=== PATIENT | male | born 1970 | race Caucasian/White ===

== ENCOUNTER → 2021-10-04 | Outpatient (CLI) | payer OTHER ==
--- NOTE | 2021-10-04 13:37 | CT ---
EXAMINATION TYPE: CT abdomen pelvis w con DATE OF EXAM: 10/04/2021 COMPARISON: None available HISTORY: Diverticulitis, hernia pain-umbilical area CT DLP: 3994 mGycm Automated exposure control for dose reduction was used. TECHNIQUE: Helical acquisition of images was performed from the lung bases through the pelvis. CONTRAST: Performed with Oral Contrast and with IV Contrast, patient injected with 100 mL of Isovue 300. FINDINGS: Mild wall thickening of the inferior aspect of the esophagus. Unremarkable nondistended stomach, duod enum and small bowel. Scattered uncomplicated colonic diverticulosis. No gross colonic mass. Normal a ppendix. Umbilical hernia containing mesenteric fat. The hernial sac measures 4.2 x 4.1 x 6.3 cm. The hernial neck measures 14 x 26 mm. Fat stranding is seen within the hernia and extending into the abdominal ca vity, underlying inflammation or fat infarct cannot be excluded. No bowel is seen within the hernia. No other anterior abdominal wall hernia identified. Ill-defined slightly exophytic hypodensity is seen at the anterior aspect of the left hepatic lobe me asuring 19 x 20 mm, incompletely characterized by this CT scan. No other definite hepatic focal lesio n identified. Unremarkable gallbladder, spleen, adrenals and kidneys. Fatty infiltration mainly of th e pancreatic head. No definite pancreatic lesion. Minimal aortic atherosclerotic calcifications. Unremarkable urinary bladder, prostate and seminal ves icles. No suspicious lymphadenopathy or sizable ascites. Unremarkable lung bases. No aggressive bone lesion. IMPRESSION: 1. Colonic diverticulosis without evidence of acute diverticulitis. 2. Fat-containing umbilical hernia as described above, for surgery consultation. 3. Indeterminate left hepatic lobe hypodensity, which could represent a hepatic hemangioma however ot her hepatic lesion cannot be excluded. Recommend further targeted ultrasound assessment. Other incide ntal findings as described above.
== END | disposition home or self-care (01) ==
LOC: RADCTMAIN 10:30
PROVIDERS: ATTEND Surgery Plastic and Reconstructive Surgery
DX: K42.9 Umbilical hernia without obstruction or gangrene (principal); K57.30 Diverticulosis of large intestine without perforation or abscess without bleeding; I11.9 Hypertensive heart disease without heart failure
CPT/HCPCS: 74177; 93005; Q9967

== ENCOUNTER → 2021-10-29 | Outpatient (CLI) | payer OTHER ==
[2021-10-29 23:41] LABS: HCT 43.3 % (39.6-50.0); HGB 14.3 g/dL (13.0-17.0); MCH 29.9 pg (27.0-32.0); MCV 90.6 fL (80.0-97.0); Mean Platelet Volume 12.1 fL (9.5-12.2); NRBC Per 100 WBC 0 /100 WBCS (0.0-0.0); Platelet Count 238 X 10*3/uL (140-440); RBC 4.78 X 10*6/uL (4.40-5.60); RDW 13.3 % (11.5-14.5); WBC 8.06 X 10*3/uL (4.50-10.00)
== END | disposition home or self-care (01) ==
LOC: LABPAT 16:00
PROVIDERS: ATTEND Anesthesiology
DX: Z01.812 Encounter for preprocedural laboratory examination (principal); K46.9 Unspecified abdominal hernia without obstruction or gangrene
CPT/HCPCS: 85027

== ENCOUNTER 2021-11-01 09:42 | Day surgery (SDC) | payer OTHER ==
[2021-10-28 14:49] VITALS: BMI 42.2
--- NOTE | 2021-11-01 09:26 | P.GSHP ---
History of Present Illness H&P Date: 11/01/21 CHIEF COMPLAINT: Ventral hernia HISTORY OF PRESENT ILLNESS: The patient is a 66-year-old male presents with a history of swelling and pain along the abdomen from a hernia. Symptoms have been present for the 6 months. Now he presents for surgical intervention. PAST MEDICAL HISTORY: Please see list. PAST SURGICAL HISTORY: Please see list. MEDICATIONS: Please see list. ALLERGIES: Please see list. SOCIAL HISTORY: No illicit drug use FAMILY HISTORY: No reports of Crohn disease or ulcerative colitis. REVIEW OF ORGAN SYSTEMS: CONSTITUTIONAL: No reports of fevers or chills. No reports of weight loss despite prior attempts. GI: Denies any blood in stools or constipation. PHYSICAL EXAM: VITAL SIGNS: Stable GENERAL: Well-developed pleasant male in no acute distress. HEENT: No scleral icterus. Extraocular movements grossly intact. Moist buccal mucosa. NECK: Supple without lymphadenopathy. CHEST: Unlabored respirations. Equal bilateral excursions. CARDIOVASCULAR: Regular rate and rhythm. Distal 2+ pulses. ABDOMEN: Soft, nondistended. Palpable defect of the abdomen. No peritoneal signs. MUSCULOSKELETAL: No clubbing, cyanosis, or edema. ASSESSMENT: 1. Ventral hernia PLAN: 1. Recommend proceeding with robotic ventral and right inguinal hernia repair with mesh. 2. Benefits and risks of surgical intervention was discussed including possibility of open technique. 3. DVT prophylaxis. 4. Antibiotic prophylaxis. 5. Non narcotic pain management including abdominal wall block including multimodal pain management described 6. Smoking cessation advised for any recent tobacco use 7. Weight loss management and recovery with high protein low carbohydrate diet advised for maximal recovery. Past Medical History Additional Past Medical History / Comment(s): hernia History of Any Multi-Drug Resistant Organisms: None Reported Additional Past Surgical History / Comment(s): COLONOSCOPY Past Anesthesia/Blood Transfusion Reactions: No Reported Reaction Smoking Status: Never smoker - Past Family History Father Family Medical History: Cancer Additional Family Medical History / Comment(s): COLON AND LUNG Medications and Allergies Home Medications Medication Instructions Recorded Confirmed Type No Known Home Medications 10/28/21 10/28/21 History Allergies Allergy/AdvReac Type Severity Reaction Status Date / Time No Known Allergies Allergy Verified 10/28/21 14:45
[~2021-11-01 09:42] MED LIST: ACETAMINOPHEN TAB 500 MG TAB PO PRN; DEXAMETHASONE SOD PHOSPHATE 4 MG/ML 1 ML VIAL IV ONE; GABAPENTIN 300 MG CAP PO PRN; HEPARIN SODIUM,PORCINE/PF 5,000 UNIT/0.5 ML SYRINGE SQ PRN; HYDROmorphone 0.5 MG/0.5 ML SYRINGE IVP PRN; MELOXICAM 7.5 MG TAB PO PRN; MIDAZOLAM 2 MG/2 ML VIAL IV PRN; ONDANSETRON 4 MG/2 ML VIAL IVP ONE; SCOPOLAMINE 1.5MG/72HR PATCH TRANSDERM ONE; TAMSULOSIN 0.4 MG CAP.ER.24H PO PRN; ceFAZolin 3 GM in SODIUM CHLORIDE 0.9% 100 ML IVPB PRN
[2021-11-01] MEDS: LACTATED RINGERS 1,000 ML IV SCH ×2 (09:50→16:20)
[2021-11-01] MEDS ORDERED: MIDAZOLAM 2 MG/2 ML VIAL IVP ONE (10:37)
[2021-11-01] MEDS ORDERED: fentaNYL (PF) 50 MCG/ML 2 ML AMP IVP ONE (10:37)
[2021-11-01 12:04] LABS: ALT 22 U/L (4-49); AST 27 U/L (17-59); African American GFR (CKD) >90 (>60 ml/min/1.73 sqM); Alkaline Phosphatase 78 U/L (38-126); Anion Gap 7 mmol/L; Blood Urea Nitrogen 13 mg/dL (9-20); Calcium 8.9 mg/dL (8.4-10.2); Carbon Dioxide 24 mmol/L (22-30); Chloride 106 mmol/L (98-107); Glucose 94 mg/dL (74-99); Non-African American GFR(CKD) 83 (>60 ml/min/1.73 sqM); Potassium 4.4 mmol/L (3.5-5.1); Sodium 137 mmol/L (137-145); Total Protein 7.2 g/dL (6.3-8.2)
[2021-11-01] MEDS ORDERED: LIDOCAINE 1% INJ 10MG/ML (20 ML MDV) ONE (12:25)
[2021-11-01] MEDS ORDERED: fentaNYL (PF) 50 MCG/ML 2 ML AMP ONE (12:25)
[2021-11-01] MEDS ORDERED: NEOSTIGMINE 1 MG/ML 10 ML VIAL ONE (12:25)
[2021-11-01] MEDS ORDERED: GLYCOPYRROLATE 0.2 MG/ML 2 ML VIAL ONE (12:25)
[2021-11-01] MEDS ORDERED: ROPIVACAINE 5 MG/ML 30 ML VIAL ONE (12:25)
[2021-11-01] MEDS ORDERED: ROCURONIUM 10 MG/ML (5 ML VIAL) IV ONE (12:25)
[2021-11-01] MEDS ORDERED: SODIUM CHLORIDE 0.9% (PF) 10 ML VIAL ONE (12:25)
[2021-11-01] MEDS ORDERED: PROPOFOL 10 MG/ML 20 ML VIAL IV ONE (12:25)
[2021-11-01] MEDS ORDERED: HYDROmorphone (PF) 1 MG/ML ONE (12:25)
[2021-11-01] MEDS ORDERED: SUCCINYLCHOLINE CHLORIDE 100 MG/5 ML SYR IV ONE (12:25)
[2021-11-01] MEDS ORDERED: BUPIVACAIN-EPI 0.25%-1:200,000 30 ML VIAL SQ ONE (12:31)
--- NOTE | 2021-11-01 12:45 | P.ANPRN ---
Procedure Note - Anesthesia - Nerve Block Performed Bilateral Rectus Abdominis Single Time Out Performed: Yes (1036) Date of Procedure: 11/01/21 Procedure Start Time: 10:37 Procedure Stop Time: 10:44 Location of Patient: PreOp Indication: Acute Post-Operative Pain, Requested by Surgeon Specifically requested for management of pain by DrJan: Marva Rivera Sedation Type: Sedate with meaningful contact maintained Preparation: Sterile Prep Position: Supine Catheter: None Needle Types: Pajunk Needle Gauge: 21 Ultrasound used to visualize needle placement: Yes Ultrasound used to observe medication spread: Yes Injectate: 0.5% Ropivacaine (see comment for volume) (20cc + 10cc nacl pf each side) Blood Aspirated: No Pain Paresthesia on Injection Noted: No Resistance on Injection: Normal Image Stored and Saved: Yes Events: Uneventful and Well Tolerated
[2021-11-01 14:08] VITALS: TEMP 97.2
[2021-11-01] MEDS ORDERED: oxyCODONE-APAP 7.5-325MG 1 EACH TAB PO PRN (14:13)
[2021-11-01] MEDS ORDERED: GABAPENTIN 300 MG CAP PO PRN (14:13)
[2021-11-01] MEDS ORDERED: KETOROLAC 15 MG/ML 1 ML VIAL IVP PRN (14:13)
[2021-11-01 14:17] VITALS: RESP 16
--- NOTE | 2021-11-01 14:19 | P.OP ---
Date of Procedure: 11/01/21 Description of Procedure: SURGEON: MARVA RIVERA MD PREOPERATIVE DIAGNOSES: 1. Initial incarcerated umbilical hernia 2. Morbid obesity due to excess calories, BMI 42.7 POSTOPERATIVE DIAGNOSES: PREOPERATIVE DIAGNOSES: 1. Initial incarcerated umbilical hernia, 3-cm 2. Morbid obesity due to excess calories, BMI 42.7 OPERATION: 1. Robotic-assisted da Jyoti Xi laparoscopic repair of initial incarcerated umbilical hernia with mesh, ventralight ST mesh 11.4 cm Anesthesia: GETA, regional, local Estimated Blood Loss (ml): 5 Pathology: 1. Incarcerated umbilical hernia defect and contents COMPLICATIONS: None. Operative Findings: 1. Umbilical hernia defect 3 cm 2. Fascia repaired using #1 V-lock suture INDICATIONS: The patient is a 50-year-old male who presents with a personal abdominal wall hernia. Surgical intervention with laparoscopic versus robotic and open techniques were reviewed. Placement of mesh was also reviewed. Benefits and risks were thoroughly described. Informed consent was obtained. DESCRIPTION OF PROCEDURE: The patient was brought into the operating room and laid in supine position. After general induction, the abdomen had been prepped and draped in standard sterile fashion. Ioban draping was also placed. Prior to incision, a timeout protocol was confirmed with surgical team regarding the patient's name including procedures to be performed. The robot was primed prior to the procedure. A field block using local anesthetic was placed along hernia site including the proposed port sites. Initial incision was made with an #11 blade along the left upper quadrant. A 0 degree 5 mm laparoscopic trocar entry was performed and insufflated. Three 8 mm ports were placed along the left lateral abdominal wall under direct localization after exchanging the 5-mm for an 8 mm port. Placements of the ports were 15 cm from the target anatomy and 10 cm apart. An accessory 12 mm port was placed at the epigastrium for exchange of mesh including sutures. The C[employer]ens[employer] Xi robot was previously primed, prepped and draped then docked from the right side of the patient onto the left side of the patient. I then sat at the robot Crowdzui Xi console where working arms of the robot including Bovie cautery connected to robotic scissors, needle personal driver, and graspers placed by the orthopaedic physician assistant. Incarcerated omental contents were found along the umbilicus. Umbilical hernia defect 3 x 3 cm was found after being reduced using abdominal wall pressure including retraction within the abdomen. The incarcerated contents were reduced as the peritoneal fat was cleaned from the abdominal wall. Next, hemostasis was checked with cautery. The hernia defect was oversewn using #1 nonabsorbable V-lock suture with fascial imbrication x 2. Next, ventralight ST mesh 11.4 cm was placed with the rough side towards the abdominal wall to cover the repair and umbilical defect. Non- absorbable 2-0 VLOC 9 inch sutures were used to fixate the mesh. A final endoscopic imaging was obtained. All instruments and pneumoperitoneum were evacuated from the abdominal cavity. The da Jyoti Xi robot was undocked from the patient. I re-scrubbed into the case for closure of incisions. The fascia of the 12-mm port was probed and less than 8-mm in size. The incisions were reapproximated using 4-0 Monocryl in an interrupted subcuticular fashion. Liquid glue was applied to the skin after cleansing the skin with normal saline and dilute hydrogen peroxide. An abdominal binder was placed. An umbilical dressing was placed prior. At the end of the procedure, needle, sponge, and instrument count had been verified correct by mine technician. The patient was taken to the postanesthesia care unit in stable condition. Plan - Discharge Summary Discharge Rx Participant: Yes New Discharge Prescriptions: New Cyclobenzaprine [Flexeril] 10 mg PO TID #30 tab Simethicone [Gas-X] 125 mg PO AC-TID PRN #20 capsule PRN Reason: Pain Ibuprofen [Motrin] 600 mg PO Q8HR PRN #30 tab PRN Reason: Pain Acetaminophen Tab [Tylenol Tab] 1,000 mg PO Q6HR PRN #30 tablet PRN Reason: Pain Discharge Medication List Acetaminophen Tab [Tylenol Tab] 1,000 mg PO Q6HR PRN #30 tablet 11/01/21 [Rx] Cyclobenzaprine [Flexeril] 10 mg PO TID #30 tab 11/01/21 [Rx] Ibuprofen [Motrin] 600 mg PO Q8HR PRN #30 tab 11/01/21 [Rx] Simethicone [Gas-X] 125 mg PO AC-TID PRN #20 capsule 11/01/21 [Rx] Follow up Appointment(s)/Referral(s): Marva Rivera MD [STAFF PHYSICIAN] - 11/05/21 (Telehealth) Patient Instructions/Handouts: Ventral Hernia Repair (GEN), Laparoscopic Herniorrhaphy (DC), Abdominal Binder (DC), *[facility] - Managing Your Pain After Surgery Without Opioids, High Protein Diet (ED) Activity/Diet/Wound Care/Special Instructions: DO NOT REMOVE UMBILICAL DRESSING. Using antibacterial soap. No lifting over 4 pounds 4 weeks, December 02December shower. No bathtub soaks for 2 weeks, November 15 Wear abdominal binder daily for comfort except for showering. Use ice along incisions for today to prevent swelling. Take tylenol, aleve/ibuprofen, simethicone scheduled for 3 days for best pain relief Discharge Disposition: HOME SELF-CARE
[2021-11-01 16:22] VITALS: BP 109/71; PULSE 94
== END 2021-11-01 17:21 | disposition home or self-care (01) ==
LOC: OR 09:42
PROVIDERS: ATTEND Surgery Plastic and Reconstructive Surgery
DX: K42.0 Umbilical hernia with obstruction, without gangrene (principal); E66.01 Morbid (severe) obesity due to excess calories; Z68.41 Body mass index [BMI] 40.0-44.9, adult; Z97.2 Presence of dental prosthetic device (complete) (partial); Z80.0 Family history of malignant neoplasm of digestive organs; Z80.1 Family history of malignant neoplasm of trachea, bronchus and lung
CPT/HCPCS: 64488; 80053; 88302; 49653; C1781; J2250; J1100; J2710; J0690; J2405; J2001; J3010; J1170 ×2; J2795; J1885; J0330; J2704; J1644